=== PATIENT | female | born 1935 | race Caucasian/White ===

== ENCOUNTER → 2016-06-18 | Outpatient (CLI) | payer MEDICARE, OTHER | LOC: MW.CHFP 13:18 | PROVIDERS: ATTEND Emergency Medicine | DX: M35.3 Polymyalgia rheumatica (principal) | CPT/HCPCS: 36415; 85652 ==

== ENCOUNTER → 2016-06-25 | Outpatient (CLI) | payer MEDICARE, OTHER | LOC: MW.CHFP 08:00 | PROVIDERS: ATTEND Student in an Organized Health Care Education/Training Program | DX: Z51.81 Encounter for therapeutic drug level monitoring (principal); Z79.01 Long term (current) use of anticoagulants; I48.91 Unspecified atrial fibrillation | CPT/HCPCS: 85610; 99211 ==

== ENCOUNTER → 2016-07-30 | Outpatient (CLI) | payer MEDICARE, OTHER | LOC: MW.CHFP 08:00 | PROVIDERS: ATTEND Student in an Organized Health Care Education/Training Program | DX: Z51.81 Encounter for therapeutic drug level monitoring (principal); Z79.01 Long term (current) use of anticoagulants; I48.91 Unspecified atrial fibrillation | CPT/HCPCS: 85610; 99211 ==

== ENCOUNTER 2017-09-29 07:32 | Day surgery (SDC) | payer MEDICARE, OTHER ==
[~2017-09-29 07:32] MED LIST: Lidocaine 2% 5 ML SDV ONE; Propofol 200 MG/20 ML SDV ONE; fentaNYL 100 MCG/2 ML SDV ONE
[2017-09-29] MEDS ORDERED: Bupivacaine 25%/EPINEPHrine/PF 30 ML ONE (07:37)
[2017-09-29] MEDS ORDERED: ceFAZolin/Dextrose,Iso-Osmotic 2 GM/50 ML Duplex Bag IV ONE (07:44)
[2017-09-29] MEDS ORDERED: ceFAZolin 2 GM in Premix Bag 1 BAG IV ONE (08:00)
[2017-09-29] MEDS ORDERED: Dexamethasone/Tobramycin 0.1-0.3% Ophth Oint 3.5 GM Tube EYEBOTH SCH (08:00)
[2017-09-29] MEDS ORDERED: Lactated Ringers 1,000 ML IV SCH (08:00)
--- NOTE | 2017-09-29 08:27 | PCM.PREANE ---
Preanesthetic Assessment - Anesthesia/Transfusion/Family Hx Anesthesia History: Prior Anesthesia Without Reaction Family History of Anesthesia Reaction: No Transfusion History: No Prior Transfusion(s) Intubation History: Unknown - Review of Systems General: No Symptoms Pulmonary: No Symptoms Cardiovascular: No Symptoms Gastrointestinal: No Symptoms Neurological: No Symptoms Other: Reports: None - Physical Assessment Height: 1.65 m Weight: 134.717 kg ASA Class: 3 Mental Status: Alert & Oriented x3 Airway Class: Mallampati = 2 Dentition: Reports: Swisher(s) (multiple crowns upper front) Thyro-Mental Finger Breadths: 3 Mouth Opening Finger Breadths: 2 ROM/Head Extension: Limited/Partial Lungs: Clear to Auscultation, Normal Respiratory Effort Cardiovascular: Regular Rate, Irregular Rhythm - Allergies Allergies/Adverse Reactions: Allergies Allergy/AdvReac Type Severity Reaction Status Date / Time No Known Allergies Allergy Verified 09/24/17 09:28 - Blood Blood Available: No - Anesthesia Plan Pre-Op Medication Ordered: None Beta Juan: Metoprolol Med Last Dose Date: 09/29/17 Med Last Dose Time: 06:00 - Acknowledgements Anesthesia Type Planned: MAC Pt an Appropriate Candidate for the Planned Anesthesia: Yes Alternatives and Risks of Anesthesia Discussed w Pt/Guardian: Yes Pt/Guardian Understands and Agrees with Anesthesia Plan: Yes PreAnesthesia Questionnaire HEENT History: Reports: Other (See Below) Other HEENT History: reading glasses Cardiovascular History: Reports: Afib (paroxismal A. fib), High Cholesterol, Hypertension Respiratory History: Reports: Other (See Below) Other Respiratory History: states may have sleep apean, not diagnosed Genitourinary History: Reports: None PURCHASING DIRECTOR History: Reports: Musculoskeletal History: Reports: Back Pain, Chronic, Osteoarthritis, RA (takes prednisone 10 mg daily) Endocrine/Metabolic History: Reports: Obesity/BMI 30+ Hematologic History: Reports: Anticoagulation Therapy - Past Surgical History Head Surgeries/Procedures: Reports: None HEENT Surgical History: Reports: Adenoidectomy, Cataract Surgery, Tonsillectomy Female Surgical History: Reports: Dilitation & Evacuation, Tubal Ligation, Other (See Below) Other Female Surgeries/Procedures: cystoscopy for urethral stricture Musculoskeletal Surgical History: Reports: Other (See Below) Other Musculoskeletal Surgeries/Procedures:: debridement and wound closure to rt lower leg - SUBSTANCE USE Smoking Status *Q: Former Smoker Recreational Drug Use History: No - HOME MEDS Home Medications: Home Meds Alendronate Sodium 1 tab PO WEEKLY 09/24/17 [History] Ascorbic Acid [Vitamin C] 1 tab.chew CHEW DAILY 09/24/17 [History] Calcium Carbonate [Calcium] 1 tab PO DAILY 09/24/17 [History] Cholecalciferol (Vitamin D3) [Vitamin D3] 1,000 units PO BID 09/24/17 [History] Folic Acid 1 tab PO DAILY 09/24/17 [History] Losartan/Hydrochlorothiazide [Losartan-HCTZ 50-12.5 MG] 1 tab PO DAILY 09/24/17 [History] Magnesium Oxide [Magnesium] 400 mg PO DAILY 09/24/17 [History] Metoprolol Tartrate 25 mg PO DAILY 09/24/17 [History] Multivitamin [Multivitamins] 1 tab PO DAILY 09/24/17 [History] Niacinamide [Niacin] 2 tab PO DAILY 09/24/17 [History] Upadacipinib 1 tab PO ASDIRECTED 09/24/17 [History] Vitamin E 400 units PO DAILY 09/24/17 [History] Warfarin [Coumadin] 1 tab PO ASDIRECTED 09/24/17 [History] atorvaSTATin Calcium [Atorvastatin Calcium] 10 mg PO BEDTIME 09/24/17 [History] predniSONE [Prednisone] 2.5 mg PO BID 09/24/17 [History] - CURRENT (IN HOUSE) MEDS Current Meds: Current Medications Cefazolin Sodium/Dextrose 2 gm (/ Premix) 50 mls @ 100 mls/hr IV ONETIME ONE Stop: 09/29/17 08:29 Lactated Ringer's (Ringers, Lactated) 1,000 mls @ 125 mls/hr IV ASDIRECTED [facility] Tobramycin/Dexamethasone (Tobradex Ophth Oint) 1 gm EYEBOTH Q4H [facility] Discontinued Medications Cefazolin Sodium/Dextrose (Ancef) Confirm Administered Dose 2 gm IV .STK-MED ONE Stop: 09/29/17 07:45 Fentanyl (Sublimaze) Confirm Administered Dose 100 mcg .ROUTE .STK-MED ONE Stop: 09/29/17 07:31 Bupivacaine HCl/Epinephrine Bitart (Sensorc Mpf 0.25%-Epi [id number]) Confirm Administered Dose 30 mls @ as directed .ROUTE .STK-MED ONE Stop: 09/29/17 07:38 Lidocaine (Xylocaine-Mpf 2%) Confirm Administered Dose 5 ml .ROUTE .STK-MED ONE Stop: 09/29/17 07:31 Propofol (Diprivan 20 Ml) Confirm Administered Dose 400 mg .ROUTE .STK-MED ONE Stop: 09/29/17 07:31
[2017-09-29] MEDS ORDERED: Dexamethasone/Tobramycin 0.1-0.3% Ophth Susp 2.5 ML Bottle ONE (08:47)
[2017-09-29] MEDS ORDERED: Dexamethasone/Tobramycin 0.1-0.3% Ophth Oint 3.5 GM Tube ONE (08:47)
[2017-09-29] MEDS ORDERED: Tetracaine 0.5% Ophth Soln 15 ML Bottle ONE (08:47)
[2017-09-29] MEDS ORDERED: Octyl 2-Cyanoacrylate 1 Tube ONE (08:48)
[2017-09-29] MEDS ORDERED: diphenhydrAMINE 50 MG/ML SDV ONE (08:54)
--- NOTE | 2017-09-29 15:28 | PCM.OPNOTE ---
- General Post-Op/Procedure Note Date of Surgery/Procedure: 09/29/17 Operative Procedure(s): bilateral upper lid blepharoplasties for excess skin Pre Op Diagnosis: dermatochalasis bilateral upper lids Post-Op Diagnosis: Same Anesthesia Technique: Local, MAC Primary Surgeon: Anika Parra Product Safety Technical Assistant: Corinne Shi Complications: None Condition: Good Free Text/Narrative:: Intake & Output 09/28/17 09/29/17 09/29/17 23:59 07:59 15:59 Intake Total 700 Balance 700
--- NOTE | 2017-09-29 16:18 | OR ---
SURGEON: EDD PATRICK MD DATE OF PROCEDURE: 09/29/2017 PREOPERATIVE DIAGNOSIS: Bilateral dermatochalasis of the upper lids. POSTOPERATIVE DIAGNOSIS: Bilateral dermatochalasis of the upper lids. PROCEDURE: Bilateral upper lid blepharoplasties for excess skin weighing down lids. CLOTH SHRINKING MACHINE OPERATOR: TORI Cox. ANESTHESIA: Local MAC. INDICATIONS: Ms. Bender is a 81-year-old female seen today in evaluation for bilateral upper lid dermatochalasis causing visual obstruction. Risks and benefits were discussed with her and were including, but not limited to, bleeding, infection, damage to underlying or overlying structures, possible need for future interventions, possible scarring. She is on Coumadin and has held that for several days. PROCEDURE IN DETAIL: After informed consent was obtained and placed on the chart, the patient was brought to the operating theater and laid in supine position. After adequate local MAC anesthesia was obtained, the area was prepped and draped and a time- out was completed to confirm side and site. 0.25% Marcaine with epinephrine was then injected into the area after adequate symmetric markings and measurements. The attention was first paid to the right eye and the excess skin was excised using a 15 blade through the skin and Bovie electrocautery for the deeper tissues in order to allow meticulous hemostasis for this lady. Once adequately hemostased the skin was closed using deep 5-0 single Monocryl stitch and a running 6-0 Prolene for the skin. The endings of the 6-0 Prolene were Steri- Stripped in place. Once this was completed, attention was paid to the left eye and a symmetry procedure was completed. After meticulous hemostasis and closure here, the Steri-Strips were placed and the patient was brought to the PACU in stable condition. FOLLOWUP INSTRUCTIONS: The patient will see us in 1 week, sooner with any problems, questions, or concerns. HEGGTHE / JEROMEL /[id number]
== END 2017-09-29 11:00 | disposition home or self-care (01) ==
LOC: MW.SDS 07:32
PROVIDERS: ATTEND Plastic Surgery
DX: H02.834 Dermatochalasis of left upper eyelid (principal); H02.831 Dermatochalasis of right upper eyelid; I10 Essential (primary) hypertension; E66.9 Obesity, unspecified; Z68.42 Body mass index [BMI] 45.0-49.9, adult; E78.00 Pure hypercholesterolemia, unspecified; I48.0 Paroxysmal atrial fibrillation; M06.9 Rheumatoid arthritis, unspecified; Z87.891 Personal history of nicotine dependence; Z79.01 Long term (current) use of anticoagulants; Z79.52 Long term (current) use of systemic steroids; Z79.899 Other long term (current) drug therapy
CPT/HCPCS: 15823; J0690; J1200; J3010; J7120; A9270-GY; J2704

== ENCOUNTER 2023-08-08 17:51 | Inpatient (IN) | payer MEDICARE, OTHER ==
[2023-08-08 18:55] LABS: INR 1.55 (0.86-1.11)
[2023-08-08] MEDS ORDERED: Sodium Chloride 0.9% 20 ML SDV IV PRN (22:02)
[2023-08-08] MEDS: Acetaminophen 500 MG Tab PO ONE (22:08)
[2023-08-08] MEDS: Sodium Chloride 0.9% 2.5 ML Syringe FLUSH PRN (22:13)
[2023-08-08] MEDS: Sodium Chloride 0.9% 10 ML Syringe FLUSH PRN (22:13)
[2023-08-08 22:26] LABS: BASOPHILS ABSOLUTE AUTO 0.03 K/uL (0.00-0.20); BASOPHILS PERCENT AUTO 0.2 % (0.0-1.0); HEMATOCRIT 30.3 % (37.0-47.0); HEMOGLOBIN 10.7 g/dL (12.0-16.0); IMMATURE GRAN ABSOLUTE AUTO 0.08 K/uL (0.00-0.05); IMMATURE GRAN PERCENT AUTO 0.5 % (0.0-0.4); LYMPHOCYTES ABSOLUTE AUTO 0.38 K/uL (1.00-4.80); LYMPHOCYTES PERCENT AUTO 2.3 % (24.0-44.0); MEAN CORPUSCULAR HEMOGLOBIN 33.8 pg (28.0-32.0); MEAN CORPUSCULAR HGB CONC 35.3 g/dL (32.0-36.0); MEAN CORPUSCULAR VOLUME 95.6 fL (83.0-99.0); MEAN PLATELET VOLUME 8.8 fL (9.4-12.3); MONOCYTES ABSOLUTE AUTO 1.05 K/uL (0.00-0.80); MONOCYTES PERCENT AUTO 6.2 % (0.0-8.0); NEUTROPHILS ABSOLUTE AUTO 15.33 K/uL (1.80-7.70); NEUTROPHILS PERCENT AUTO 90.8 % (41.0-71.0); PLATELET COUNT,PLT 174 K/uL (150-400); RED BLOOD CELL COUNT 3.17 M/uL (4.10-5.30); WHITE BLOOD CELL COUNT,WBC 16.87 K/uL (3.9-11.3)
[2023-08-08] MEDS ORDERED: Morphine 2 MG/ML SYRINGE IVPUSH PRN (22:30)
[2023-08-08] MEDS ORDERED: Ondansetron 4 MG/2 ML SDV IVPUSH PRN (22:30)
[2023-08-08] MEDS ORDERED: Polyethylene Glycol 3350 Powder 17 GM Packet PO PRN (22:30)
[2023-08-08] MEDS ORDERED: Naloxone 0.4 MG/ML SDV IVPUSH PRN (22:30)
[2023-08-08] MEDS ORDERED: Acetaminophen 325 MG Tab PO PRN (22:30)
[2023-08-08] MEDS ORDERED: Melatonin 3 MG Tab PO PRN (22:30)
[2023-08-08 22:42] LABS: CALCIUM 8.6 mg/dL (8.5-10.1); CARBON DIOXIDE,CO2 23.5 mmol/L (21.0-32.0); CREATININE 0.7 mg/dL (0.6-1.0); EST CRCL DRUG DOSING (CG) 50.74 mL/min; POTASSIUM,K 3.8 mmol/L (3.5-5.1)
[2023-08-08] MEDS: Acetaminophen 325 MG Tab PO SCH (23:14)
[2023-08-08] MEDS: Sodium Chloride 0.9% 500 ML IV ONE (23:19)
[2023-08-09] MEDS: Sodium Chloride 0.9% 500 ML IV ONE (00:40)
[2023-08-09] MEDS ORDERED: Benzocaine/Cetylpyridinium/Menthol Lozenge MUCMEM PRN (00:45)
[2023-08-09 04:55] LABS: BILIRUBIN,URINE NEGATIVE (NEGATIVE); COLOR,URINE YELLOW; GLUCOSE,URINE NEGATIVE (NEGATIVE); KETONES,URINE NEGATIVE (NEGATIVE); LEUKOCYTE ESTERASE,URINE NEGATIVE (NEGATIVE); NITRITE,URINE POSITIVE (NEGATIVE); OCCULT BLOOD,URINE NEGATIVE (NEGATIVE); PROTEIN,URINE NEGATIVE (NEGATIVE); UROBILINOGEN,URINE 0.2 EU/dL (<2.0)
[2023-08-09 05:16] LABS: APPEARANCE,URINE HAZY; EPITHELIAL CELLS,URINE RARE (NONE-FEW); MUCUS,URINE FEW (NONE-MOD); RBC,URINE 0-1 (0-2/HPF); WBC,URINE 0-2 (0-5/HPF)
[2023-08-09 05:17] LABS: BACTERIA,URINE FEW (NEGATIVE)
[2023-08-09 05:56] LABS: BASOPHILS ABSOLUTE AUTO 0.01 K/uL (0.00-0.20); BASOPHILS PERCENT AUTO 0.1 % (0.0-1.0); HEMATOCRIT 26.4 % (37.0-47.0); HEMOGLOBIN 9.1 g/dL (12.0-16.0); IMMATURE GRAN ABSOLUTE AUTO 0.02 K/uL (0.00-0.05); IMMATURE GRAN PERCENT AUTO 0.3 % (0.0-0.4); LYMPHOCYTES PERCENT AUTO 11.3 % (24.0-44.0); MEAN CORPUSCULAR HEMOGLOBIN 33.3 pg (28.0-32.0); MEAN CORPUSCULAR HGB CONC 34.5 g/dL (32.0-36.0); MEAN CORPUSCULAR VOLUME 96.7 fL (83.0-99.0); MONOCYTES ABSOLUTE AUTO 0.71 K/uL (0.00-0.80); MONOCYTES PERCENT AUTO 10.1 % (0.0-8.0); NEUTROPHILS ABSOLUTE AUTO 5.51 K/uL (1.80-7.70); NEUTROPHILS PERCENT AUTO 78.2 % (41.0-71.0); NRBC ABSOLUTE 0.02 K/uL (0.00-0.02); NRBC PERCENT 0.3 /100WBC (0.0-0.2); PLATELET COUNT,PLT 152 K/uL (150-400); RED BLOOD CELL COUNT 2.73 M/uL (4.10-5.30); WHITE BLOOD CELL COUNT,WBC 7.05 K/uL (3.9-11.3)
[2023-08-09 06:21] LABS: CALCIUM 8.1 mg/dL (8.5-10.1); CARBON DIOXIDE,CO2 23.5 mmol/L (21.0-32.0); CREATININE 0.7 mg/dL (0.6-1.0); EST CRCL DRUG DOSING (CG) 52.87 mL/min; MAGNESIUM 1.6 mg/dL (1.8-2.4); POTASSIUM,K 3.7 mmol/L (3.5-5.1)
[2023-08-09] MEDS: Magnesium Oxide 400 MG Tab PO ONE (08:54)
[2023-08-09] MEDS: Potassium Chloride 20 MEQ Tab.ER PO ONE (08:54)
[2023-08-09] MEDS: Metoprolol Tartrate 25 MG Tab PO SCH (08:54)
[2023-08-09] MEDS ORDERED: Metoprolol Tartrate 25 MG Tab PO SCH (09:00)
[2023-08-09 10:55] LABS: INR 1.89 (0.86-1.11)
[2023-08-09] MEDS: Warfarin 5 MG, Warfarin 2.5 MG PO ONE (13:34)
[2023-08-09] MEDS: Warfarin Sliding Scale SCH (15:40)
[2023-08-09] MEDS: atorvaSTATin 10 MG Tab PO SCH (20:49)
[2023-08-09] MEDS: sulfaSALAzine 500 MG Tab PO SCH (22:20)
[2023-08-10] MEDS: Calcium Carbonate 500 MG Tab.Chew PO SCH (08:50)
[2023-08-10] MEDS: Potassium Chloride 20 MEQ Tab.ER PO ONE (10:13)
[2023-08-10] MEDS: Magnesium Sulfate/Water 2 GM in Premix Bag 1 BAG IV ONE (10:14)
[2023-08-10 12:51] LABS: BASOPHILS ABSOLUTE AUTO 0.03 K/uL (0.00-0.20); BASOPHILS PERCENT AUTO 0.3 % (0.0-1.0); EOSINOPHILS ABSOLUTE AUTO 0.01 K/uL (0.00-0.45); EOSINOPHILS PERCENT AUTO 0.1 % (0.0-6.0); HEMOGLOBIN 10.3 g/dL (12.0-16.0); IMMATURE GRAN ABSOLUTE AUTO 0.04 K/uL (0.00-0.05); IMMATURE GRAN PERCENT AUTO 0.4 % (0.0-0.4); LYMPHOCYTES ABSOLUTE AUTO 1.16 K/uL (1.00-4.80); LYMPHOCYTES PERCENT AUTO 11.7 % (24.0-44.0); MEAN CORPUSCULAR HEMOGLOBIN 34.1 pg (28.0-32.0); MEAN CORPUSCULAR HGB CONC 34.3 g/dL (32.0-36.0); MEAN CORPUSCULAR VOLUME 99.3 fL (83.0-99.0); MEAN PLATELET VOLUME 9.9 fL (9.4-12.3); MONOCYTES ABSOLUTE AUTO 1.03 K/uL (0.00-0.80); MONOCYTES PERCENT AUTO 10.4 % (0.0-8.0); NEUTROPHILS ABSOLUTE AUTO 7.67 K/uL (1.80-7.70); NEUTROPHILS PERCENT AUTO 77.1 % (41.0-71.0); PLATELET COUNT,PLT 149 K/uL (150-400); RED BLOOD CELL COUNT 3.02 M/uL (4.10-5.30); WHITE BLOOD CELL COUNT,WBC 9.94 K/uL (3.9-11.3)
[2023-08-10 13:06] LABS: INR 1.98 (0.86-1.11)
[2023-08-10 13:21] LABS: A/G RATIO 0.8 (0.9-1.6); ALBUMIN 3.2 g/dL (3.4-5.0); BILIRUBIN TOTAL 0.9 mg/dL (0.2-1.0); CALCIUM 8.8 mg/dL (8.5-10.1); CREATININE 0.8 mg/dL (0.6-1.0); EST CRCL DRUG DOSING (CG) 46.26 mL/min; PROTEIN TOTAL,TP 7.1 g/dL (6.4-8.2)
[2023-08-10] MEDS: Warfarin 2.5 MG Tab PO SCH (15:02)
[2023-08-10] MEDS: Sodium Chloride 0.9% 500 ML IV SCH (15:09)
[2023-08-11 06:14] LABS: HEMOGLOBIN 8.1 g/dL (12.0-16.0); MEAN CORPUSCULAR HEMOGLOBIN 34.2 pg (28.0-32.0); MEAN CORPUSCULAR HGB CONC 35.2 g/dL (32.0-36.0); MEAN PLATELET VOLUME 9.5 fL (9.4-12.3); NRBC ABSOLUTE 0.02 K/uL (0.00-0.02); NRBC PERCENT 0.3 /100WBC (0.0-0.2); PLATELET COUNT,PLT 151 K/uL (150-400); RED BLOOD CELL COUNT 2.37 M/uL (4.10-5.30); WHITE BLOOD CELL COUNT,WBC 6.83 K/uL (3.9-11.3)
[2023-08-11 06:45] LABS: A/G RATIO 0.8 (0.9-1.6); ALBUMIN 2.5 g/dL (3.4-5.0); BILIRUBIN TOTAL 0.7 mg/dL (0.2-1.0); CALCIUM 7.8 mg/dL (8.5-10.1); CARBON DIOXIDE,CO2 22.9 mmol/L (21.0-32.0); CREATININE 0.7 mg/dL (0.6-1.0); EST CRCL DRUG DOSING (CG) 52.87 mL/min; MAGNESIUM 2.1 mg/dL (1.8-2.4); POTASSIUM,K 4.3 mmol/L (3.5-5.1); PROTEIN TOTAL,TP 5.6 g/dL (6.4-8.2)
[2023-08-11 15:03] LABS: INR 2.12 (0.86-1.11)
[2023-08-11] MEDS: Warfarin 2.5 MG Tab PO SCH (15:45)
[2023-08-12 06:51] LABS: HEMATOCRIT 24.3 % (37.0-47.0); HEMOGLOBIN 8.4 g/dL (12.0-16.0); MEAN CORPUSCULAR HEMOGLOBIN 33.6 pg (28.0-32.0); MEAN CORPUSCULAR HGB CONC 34.6 g/dL (32.0-36.0); MEAN CORPUSCULAR VOLUME 97.2 fL (83.0-99.0); MEAN PLATELET VOLUME 9.2 fL (9.4-12.3); NRBC ABSOLUTE 0.04 K/uL (0.00-0.02); NRBC PERCENT 0.6 /100WBC (0.0-0.2); PLATELET COUNT,PLT 152 K/uL (150-400); WHITE BLOOD CELL COUNT,WBC 6.28 K/uL (3.9-11.3)
[2023-08-12 07:12] LABS: CARBON DIOXIDE,CO2 20.9 mmol/L (21.0-32.0); CREATININE 0.7 mg/dL (0.6-1.0); EST CRCL DRUG DOSING (CG) 52.87 mL/min; MAGNESIUM 1.9 mg/dL (1.8-2.4)
== END 2023-08-12 10:10 | DRG 563 ==
LOC: MW.ED 17:51 → MW.MS 21:54
PROVIDERS: ADMIT Family Medicine; ATTEND Family Medicine
DX: S42.212A Unspecified displaced fracture of surgical neck of left humerus, initial encounter for closed fracture (principal); S32.592A Other specified fracture of left pubis, initial encounter for closed fracture; S32.512A Fracture of superior rim of left pubis, initial encounter for closed fracture; W01.0XXA Fall on same level from slipping, tripping and stumbling without subsequent striking against object, initial encounter; E78.00 Pure hypercholesterolemia, unspecified; I10 Essential (primary) hypertension; Z68.23 Body mass index [BMI] 23.0-23.9, adult; M54.9 Dorsalgia, unspecified; G89.29 Other chronic pain; W13.3XXA Fall through floor, initial encounter; M19.90 Unspecified osteoarthritis, unspecified site; M06.9 Rheumatoid arthritis, unspecified; I48.91 Unspecified atrial fibrillation; E66.9 Obesity, unspecified; Z90.89 Acquired absence of other organs; Z98.49 Cataract extraction status, unspecified eye; Z98.51 Tubal ligation status; Z79.899 Other long term (current) drug therapy; Z79.01 Long term (current) use of anticoagulants
CPT/HCPCS: 36415; 70450; 70450-26; 72125; 72125-26; 72192; 72192-26; 73030-26-LT; 73030-LT; 73502-26-LT; 73502-LT; 80048; 80053; 81001; 82550; 83735; 85025; 85027; 85610; 87086; 97110-GP; 97161-GP; 97530-GP; 99222; 99232; 99239; 99284; 99285; A9270-GY; J3475; J3490; J7040